=== PATIENT | female | born 1985 | race Caucasian/White ===

== ENCOUNTER 2020-06-16 05:49 | Inpatient (IN) ==
[2020-06-16] MEDS ORDERED: ONDANSETRON 4 MG/2 ML VIAL IV PRN ×2 (06:01→16:27)
[2020-06-16] MEDS ORDERED: BUTORPHANOL 2 MG/ML VIAL IV PRN (06:01)
[2020-06-16] MEDS ORDERED: MEPERIDINE 50 MG/1 ML VIAL IV PRN (06:01)
[2020-06-16] MEDS ORDERED: OXYTOCIN/LR 20 UNIT/1,000 ML BAG IV SCH (06:30)
[2020-06-16] MEDS ORDERED: LACTATED RINGERS 1,000 ML IV SCH ×2 (06:30→16:30)
[2020-06-16 06:33] LABS: Basophils # 0.1 10*3/uL (0.0-0.2); Basophils % 0.4 % (0.0-0.8); Eosinophils # 0.3 10*3/uL (0.0-0.87); Eosinophils % 2.1 % (0.00-10.9); Hematocrit 34.2 VOL% (35.7-47.0); Hemoglobin 11.3 GM/DL (12.0-16.0); Immature Granulocytes % 0.8 %; Immature Granulocytes Absolute 0.11 #; Lymphocytes # 3.6 10*3/uL (1.4-4.0); Lymphocytes % 25.2 % (21.3-54.2); Mean Corpuscular Volume 93.7 FL (87-102); Mean Platelet Volume 10.5 FL (9.6-12.0); Monocytes % 7.5 % (1.7-12.7); Platelet Count 232 T/CUMM (130-400); Red Blood Count 3.65 MC/CUMM (3.8-5.5); Red Cell Distribution Width 13.2 % (9.3-17.3); White Blood Count 14.4 T/CUMM (4-12)
[2020-06-16 06:55] LABS: Alanine Aminotransferase 12 U/L (13-56); Albumin 3.1 G/DL (3.4-5.0); Alkaline Phosphatase 154 U/L (45-117); Aspartate Amino Transferase 17 U/L (0-37); Bilirubin,Total < 0.39 MG/DL (0.2-1.0); Blood Urea Nitrogen 6 MG/DL (7-18); Calcium 9.2 MG/DL (8.5-10.1); Carbon Dioxide 21 MMOL/L (21-32); Estimated Glom Filtration Rate 153 ML/MIN; Glucose 80 MG/DL (74-106); Osmolality,Calculated 269.8 MOS/KG (273-304); Potassium 3.9 MMOL/L (3.5-5.1); Sodium 137 MMOL/L (136-145); Total Protein 7.1 G/DL (6.4-8.2)
[2020-06-16] MEDS ORDERED: AMPICILLIN INJ 2,000 MG in SODIUM CHLORIDE 0.9% 100 ML IV SCH (07:00)
[2020-06-16] MEDS ORDERED: FAMOTIDINE 20 MG/2 ML VIAL IV ONE (09:26)
[2020-06-16] MEDS ORDERED: NALOXONE 0.4 MG/ML VIAL IV PRN (09:26)
[2020-06-16] MEDS ORDERED: CITRIC ACID/SODIUM CITRATE 30 ML UDCUP PO ONE (09:26)
[2020-06-16] MEDS ORDERED: LACTATED RINGERS 1,000 ML IV ONE (09:26)
[2020-06-16] MEDS ORDERED: diphenhydrAMINE 50 MG/1 ML VIAL IV PRN ×2 (09:26)
[2020-06-16] MEDS ORDERED: fentaNYL 2 MCG/ROPIV 0.2% EPID 100 ML EPIDURAL SCH (09:30)
[2020-06-16] MEDS ORDERED: ePHEDrine 50 MG/ML VIAL ONE (09:35)
[2020-06-16 11:03] LABS: Bilirubin,Urine Negative (Negative); Blood, Urine Negative (Negative); Glucose,Urine (UA) Negative (Negative); Ketones,Urine Negative (Negative); Mucus,Urine Occasional /LPF (Occasional); Nitrite,Urine Negative (Negative); Protein,Urine Negative; RBC,Urine <1 /HPF (0-4); Squamous Epithelial Cell,Urine Occasional /HPF (0-10); Urine Appearance CLEAR (Clear); Urine Color Yellow (Yellow); Urine Urobilinogen < 2.0 EU/DL (0.2-1.0); WBC,Urine <1 /HPF (0-6)
[2020-06-16] MEDS ORDERED: miSOPROStoL 200 MCG TABLET ONE (13:35)
[2020-06-16] MEDS ORDERED: METHYLERGONOVINE 0.2 MG/1 ML AMP ONE (13:36)
[2020-06-16] MEDS ORDERED: CARBOPROST TROMETHAMINE 250 MCG/ML AMP IM ONE (13:36)
[2020-06-16] MEDS ORDERED: TERBUTALINE 1 MG/1 ML VIAL ONE (14:31)
[2020-06-16] MEDS ORDERED: OXYTOCIN/LR 30 UNIT/1,000 ML BAG IV ONE (15:24)
[2020-06-16] MEDS ORDERED: OXYTOCIN 10 UNIT/ML VIAL IM ONE (15:24)
[2020-06-16] MEDS ORDERED: MORPHINE 10 MG/10 ML VIAL ONE (15:28)
[2020-06-16] MEDS ORDERED: ONDANSETRON 4 MG/2 ML VIAL ONE ×2 (15:50)
[2020-06-16] MEDS ORDERED: LIDOCAINE MPF 2% /EPI 20 ML VIAL ONE (15:50)
[2020-06-16] MEDS ORDERED: KETOROLAC 30 MG/1 ML VIAL ONE ×2 (15:50)
[2020-06-16] MEDS ORDERED: PHENYLEPHRINE 1 MG/10 ML SYRINGE IV ONE (15:58)
[2020-06-16] MEDS ORDERED: ceFAZolin 2,000 MG in PREMIX 1 EACH IV ONE (16:00)
[2020-06-16] MEDS ORDERED: ceFAZolin 2,000 MG in SODIUM CHLORIDE 0.9% 100 ML IV ONE (16:11)
[2020-06-16] MEDS ORDERED: HYDROmorphone 2 MG/1 ML VIAL IV PRN (16:23)
[2020-06-16] MEDS ORDERED: hydrOXYzine HCL 25 MG/1 ML VIAL IM PRN (16:23)
[2020-06-16] MEDS ORDERED: RHO(D) IMMUNE GLOBULIN 300 MCG SYRINGE IM ONE (16:27)
[2020-06-16] MEDS ORDERED: OXYTOCIN/LR 20 UNIT/1,000 ML BAG IV ONE (16:27)
[2020-06-16] MEDS ORDERED: SIMETHICONE CHEW 80 MG TABLET PO PRN (16:27)
[2020-06-16] MEDS ORDERED: ACETAMINOPHEN 325 MG TABLET PO PRN (16:27)
[2020-06-16 16:53] LABS: Cord Venous Blood HCO3 23.5 MMOL/L; Cord Venous Blood PCO2 46.5 MMHG; Cord Venous Blood PO2 25.5 MMHG
[2020-06-16] MEDS: DOCUSATE SODIUM 100 MG CAPSULE PO SCH (21:04)
[2020-06-16] MEDS: ceFAZolin 1,000 MG in SYRINGE 1 EACH IV SCH (23:57)
[2020-06-17] MEDS: KETOROLAC 30 MG/1 ML VIAL IV SCH ×3 (00:07→13:07)
[2020-06-17 01:23] LABS: Basophils # 0.1 10*3/uL (0.0-0.2); Basophils % 0.3 % (0.0-0.8); Eosinophils # 0.1 10*3/uL (0.0-0.87); Eosinophils % 0.7 % (0.00-10.9); Hematocrit 30.2 VOL% (35.7-47.0); Hemoglobin 9.6 GM/DL (12.0-16.0); Immature Granulocytes % 0.7 %; Immature Granulocytes Absolute 0.13 #; Lymphocytes # 2.9 10*3/uL (1.4-4.0); Lymphocytes % 14.9 % (21.3-54.2); Mean Corpuscular HGB Conc 31.8 GM/DL (32-36); Mean Corpuscular Volume 97.7 FL (87-102); Mean Platelet Volume 11.3 FL (9.6-12.0); Monocytes % 6.6 % (1.7-12.7); Neutrophils % 76.8 % (38.7-73.9); Platelet Count 214 T/CUMM (130-400); Red Blood Count 3.09 MC/CUMM (3.8-5.5); Red Cell Distribution Width 13.2 % (9.3-17.3); White Blood Count 19.5 T/CUMM (4-12)
[2020-06-17 07:32] LABS: Basophils # 0.1 10*3/uL (0.0-0.2); Basophils % 0.3 % (0.0-0.8); Eosinophils # 0.2 10*3/uL (0.0-0.87); Hematocrit 28.7 VOL% (35.7-47.0); Hemoglobin 9.2 GM/DL (12.0-16.0); Immature Granulocytes % 0.8 %; Immature Granulocytes Absolute 0.13 #; Lymphocytes # 2.6 10*3/uL (1.4-4.0); Lymphocytes % 15.5 % (21.3-54.2); Mean Corpuscular HGB Conc 32.1 GM/DL (32-36); Mean Platelet Volume 10.8 FL (9.6-12.0); Neutrophils % 75.4 % (38.7-73.9); Platelet Count 214 T/CUMM (130-400); Red Blood Count 2.96 MC/CUMM (3.8-5.5); Red Cell Distribution Width 13.2 % (9.3-17.3); White Blood Count 16.5 T/CUMM (4-12)
[2020-06-17] MEDS: ceFAZolin 1,000 MG in SYRINGE 1 EACH IV SCH (08:57)
[2020-06-17] MEDS: METOCLOPRAMIDE 10 MG TABLET PO SCH ×3 (09:07→23:44)
[2020-06-17] MEDS: MULTIVITAMIN (PRENATAL) TABLET PO SCH (09:07)
[2020-06-17] MEDS: DOCUSATE SODIUM 100 MG CAPSULE PO SCH ×2 (09:12→23:44)
[2020-06-17] MEDS: MAGNESIUM HYDROXIDE SUSP 30 ML UDCUP PO PRN (09:13)
[2020-06-17] MEDS: IBUPROFEN 800 MG TABLET PO PRN ×2 (13:07→23:45)
[2020-06-18 07:44] VITALS: BP 132/77
[2020-06-18] MEDS: MULTIVITAMIN (PRENATAL) TABLET PO SCH (08:44)
[2020-06-18] MEDS: METOCLOPRAMIDE 10 MG TABLET PO SCH (08:44)
[2020-06-18] MEDS: DOCUSATE SODIUM 100 MG CAPSULE PO SCH (08:44)
[2020-06-18] MEDS: MAGNESIUM HYDROXIDE SUSP 30 ML UDCUP PO PRN (08:44)
== END 2020-06-18 12:35 | disposition home or self-care (01) | DRG 788 ==
LOC: N.LD 05:49 → N.OB 20:48
PROVIDERS: ADMIT Obstetrics & Gynecology; ATTEND Obstetrics & Gynecology
PROC: LDCSECT (ICD-10-PCS; 2020-06-16 15:00)